=== PATIENT | female | born 1965 | race Caucasian/White ===

== ENCOUNTER 2018-03-15 21:24 | Emergency (ER) | payer MEDICAID ==
[~2018-03-15] VITALS: Ht 134.6 cm; Wt 113.4 kg
[2018-03-15 21:48] VITALS: BP_SYST 117
== END 2018-03-15 22:32 | disposition left against medical advice (07) ==
LOC: SED 21:24
DX: M79.605 Pain in left leg (principal); M79.604 Pain in right leg; Z53.21 Procedure and treatment not carried out due to patient leaving prior to being seen by health care provider

== ENCOUNTER 2018-04-27 14:13 | Emergency (ER) | payer MEDICAID ==
[~2018-04-27] VITALS: Ht 144.8 cm; Wt 97.5 kg
[2018-04-27 14:15] VITALS: BP_SYST 123
[2018-04-27 15:38] VITALS: BP_SYST 119
== END 2018-04-27 15:38 | disposition home or self-care (01) ==
LOC: SED 14:13
DX: S40.862A Insect bite (nonvenomous) of left upper arm, initial encounter (principal); S40.861A Insect bite (nonvenomous) of right upper arm, initial encounter; S90.561A Insect bite (nonvenomous), right ankle, initial encounter; L03.114 Cellulitis of left upper limb; L03.113 Cellulitis of right upper limb; L03.115 Cellulitis of right lower limb; I10 Essential (primary) hypertension; E78.00 Pure hypercholesterolemia, unspecified; W57.XXXA Bitten or stung by nonvenomous insect and other nonvenomous arthropods, initial encounter; Y93.89 Activity, other specified; Y92.89 Other specified places as the place of occurrence of the external cause; Y99.8 Other external cause status
CPT/HCPCS: 99283

== ENCOUNTER 2018-08-01 15:53 | Emergency (ER) | payer MEDICAID ==
[~2018-08-01] VITALS: Ht 144.8 cm; Wt 97.5 kg
[2018-08-01 16:11] VITALS: BP_SYST 137
[2018-08-01] MEDS ORDERED: NACL 0.9% 1,000 ML IV ONE (16:56)
[2018-08-01] MEDS ORDERED: KETOROLAC TROMETHAMINE 30 MG VIAL IVP ONE (17:00)
[2018-08-01] MEDS ORDERED: ONDANSETRON HCL 4 MG/2 ML VIAL IVP ONE (17:00)
[2018-08-01 17:15] LABS: BILIRUBIN,URINE NEGATIVE (NEGATIVE); CLARITY/URINE SL HAZY (CLEAR); COLOR,URINE YELLOW (YELLOW); GLUCOSE,URINE NEGATIVE (NEGATIVE); KETONES,URINE NEGATIVE (NEGATIVE); LEUKOCYTE ESTERASE ,URINE NEGATIVE (NEGATIVE); NITRITE, URINE NEGATIVE (NEGATIVE); PH,URINE 5.5 (5.0-8.0); PROTEIN URINE NEGATIVE (NEGATIVE); UROBILINOGEN,URINE 0.2 (0.2-1.0)
[2018-08-01 17:21] LABS: BLOOD, URINE TRACE (NEGATIVE)
[2018-08-01 17:22] LABS: CALCIUM 8.7 mg/dL (8.4-11.0); CREATININE 0.92 mg/dL (0.55-1.30); POTASSIUM 3.4 mmol/L (3.5-5.1)
[2018-08-01 17:27] LABS: PROTHROMBIN TIME 10.4 SECS (9.5-12.5)
[2018-08-01 17:28] LABS: ALBUMIN 3.7 g/dL (3.4-4.8); TOTAL BILIRUBIN 0.5 mg/dL (0.0-1.0)
[2018-08-01 17:29] LABS: HEMATOCRIT 43.6 % (36-48); HEMOGLOBIN 14.4 g/dL (12.0-16.0); MEAN CORPUSCULAR HEMOGLOBIN 28 pg (27-31); MEAN CORPUSCULAR HGB CONC 33 % (32-36); MEAN CORPUSCULAR VOLUME 86 fL (79.0-98.0); PLATELET COUNT (AUTO) 197 K/uL (130-430); RED BLOOD CELL COUNT(AUTO) 5.07 MIL/uL (4.2-6.2); RED CELL DISTRIBUTION WIDTH 13.4 % (9.0-15.0); WHITE BLOOD COUNT (AUTO) 2.4 K/uL (4.8-10.8)
[2018-08-01] MEDS ORDERED: LOVA20TA2 PO (17:40)
[2018-08-01] MEDS ORDERED: NAPR250T4 PO (17:40)
[2018-08-01] MEDS ORDERED: IBUP-1969 PO (17:40)
[2018-08-01 17:51] LABS: BACTERIA,URINE FEW /HPF (None Seen); MUCUS,URINE 3+ /LPF (None Seen); RBC,URINE 0-3 /HPF (0-3); WBC,URINE 0-3 /HPF (0-3)
[2018-08-01 18:17] LABS: ATYPICAL LYMPHOCYTES % 2 % (0-0); BAND % (MANUAL) 6 % (0-6); BASOPHILS % (MANUAL) 0 % (0-2); EOSINOPHILS % (MANUAL) 2 % (0-7); LYMPHOCYTES % (MANUAL) 37 % (20-46); MONOCYTES % (MANUAL) 8 % (0-11)
[2018-08-01] MEDS ORDERED: PROPOFOL DRIP 100 ML IV ONE (21:00)
[2018-08-01] MEDS ORDERED: MORPHINE 4 MG/ML INJ. SYRINGE IVP ONE (21:00)
[2018-08-01 21:12] VITALS: BP_SYST 128
== END 2018-08-01 21:12 | disposition short-term general hospital (02) ==
LOC: SED 15:53
DX: R10.2 Pelvic and perineal pain (principal); R19.00 Intra-abdominal and pelvic swelling, mass and lump, unspecified site; E78.00 Pure hypercholesterolemia, unspecified; I10 Essential (primary) hypertension; Z79.899 Other long term (current) drug therapy
CPT/HCPCS: 36415; 71045; 74176; 76830; 76857; 80053; 81000; 82150; 82550; 83690; 85007; 85027; 85610; 85730; 93005; 96374; 96375; 99285; J1885; J2270; J2405; J7030

== ENCOUNTER 2018-08-02 22:26 | Emergency (ER) | payer MEDICAID ==
[~2018-08-02] VITALS: Ht 144.8 cm; Wt 97.5 kg
[~2018-08-02 22:26] MED LIST: IBUP-1969 PO; LOVA20TA2 PO; NAPR250T4 PO
[2018-08-02 22:44] VITALS: BP_SYST 136
[2018-08-02] MEDS ORDERED: ONDANSETRON 4 MG ODT TAB PO ONE (23:00)
[2018-08-02] MEDS ORDERED: KETOROLAC TROMETHAMINE 60 MG/2 ML VIAL IM ONE (23:30)
[2018-08-02 23:42] VITALS: BP_SYST 128
== END 2018-08-02 23:42 | disposition home or self-care (01) ==
LOC: SED 22:26
DX: R19.00 Intra-abdominal and pelvic swelling, mass and lump, unspecified site (principal); R11.10 Vomiting, unspecified; E78.00 Pure hypercholesterolemia, unspecified; I10 Essential (primary) hypertension; Z79.899 Other long term (current) drug therapy
CPT/HCPCS: 96372; 99283; J1885; Q0162

== ENCOUNTER 2022-05-09 11:27 | Emergency (ER) | payer MEDICAID ==
[~2022-05-09] VITALS: Ht 144.8 cm; Wt 85.3 kg
[~2022-05-09 11:27] MED LIST changes: +NAPR-1169 PO; -NAPR250T4 PO
--- NOTE | 2022-05-09 11:50 | NUR ---
PT BIB SELF, AWAKE AND ALERT AOX 4. NO SOB OR DISTRESS. PERRLA. DENIES PAIN PT C/O COUGH X2 DAYS.
--- NOTE | 2022-05-09 11:55 | NUR ---
MD DR PALUMBO AT BED SIDE
[2022-05-09 11:56] VITALS: BP_SYST 106
[2022-05-09] MEDS ORDERED: NIRM1TAB PO (13:32)
[2022-05-09 14:05] VITALS: BP_SYST 145
--- NOTE | 2022-05-09 14:06 | NUR ---
Patient given written and verbal discharge instructions and verbalizes understanding. ER MD discussed with patient the results and treatment provided. Patient in stable condition. ID arm band removed. Rx of RITONAVIR given. Patient educated on pain management and to follow up with PMD. Opportunity for questions provided and answered. Medication side effect fact sheet provided.
== END 2022-05-09 14:06 | disposition home or self-care (01) ==
LOC: SED 11:27
DX: U07.1 COVID-19 (principal); J40 Bronchitis, not specified as acute or chronic; I10 Essential (primary) hypertension; E78.00 Pure hypercholesterolemia, unspecified; Z79.899 Other long term (current) drug therapy
CPT/HCPCS: 36415; 71045; 99284

== ENCOUNTER 2022-12-24 17:28 | Emergency (ER) | payer MEDICAID ==
[~2022-12-24] VITALS: Ht 134.6 cm; Wt 91.6 kg
[2022-12-24 17:28] VITALS: BP_SYST 156
[~2022-12-24 17:28] MED LIST changes: +NIRM1TAB PO
[2022-12-24] MEDS ORDERED: methylPREDNISolone SOD SUCC/PF 62.5 MG/ML VIAL IVP ONE (17:45)
[2022-12-24] MEDS ORDERED: ALBUTEROL SULFATE 0.083% 2.5 MG/3 ML VIAL.NEB INH ONE (17:45)
[2022-12-24] MEDS ORDERED: NACL 0.9% 1,000 ML IV ONE (17:45)
[2022-12-24 18:29] LABS: BASOPHILS % (AUTO) 0.7 % (0.0-2.0); EOSINOPHILS # (AUTO) 0.1 K/uL (0.0-0.4); EOSINOPHILS % (AUTO) 1.9 % (0.0-4.0); HEMATOCRIT 35.7 % (36-48); HEMOGLOBIN 11.9 g/dL (12.0-16.0); LYMPHOCYTES # (AUTO) 2.7 K/uL (1.0-5.5); LYMPHOCYTES % (AUTO) 58.7 % (20.5-51.5); MEAN CORPUSCULAR HEMOGLOBIN 28 pg (27-31); MEAN CORPUSCULAR HGB CONC 33 % (32-36); MEAN CORPUSCULAR VOLUME 85 fL (79.0-98.0); MONOCYTES # (AUTO) 0.4 K/uL (0.0-1.0); MONOCYTES % (AUTO) 9.4 % (1.7-9.3); NEUTROPHILS # (AUTO) 1.3 K/uL (1.8-7.7); NEUTROPHILS % (AUTO) 29.3 % (40.0-70.0); PLATELET COUNT (AUTO) 199 K/uL (130-430); RED BLOOD CELL COUNT(AUTO) 4.22 MIL/uL (4.2-6.2); RED CELL DISTRIBUTION WIDTH 14.3 % (9.0-15.0); WHITE BLOOD COUNT (AUTO) 4.6 K/uL (4.8-10.8)
[2022-12-24 18:42] LABS: CALCIUM 8.5 mg/dL (8.4-11.0); CREATININE 0.84 mg/dL (0.55-1.30)
[2022-12-24 18:46] LABS: ALBUMIN 3.4 g/dL (3.4-4.8); TOTAL BILIRUBIN 0.4 mg/dL (0.0-1.0)
[2022-12-24] MEDS ORDERED: FLUT1DIS3 INH (18:55)
[2022-12-24] MEDS ORDERED: MED4 PO (18:55)
[2022-12-24 19:05] VITALS: BP_SYST 156
== END 2022-12-24 19:05 | disposition home or self-care (01) ==
LOC: SED 17:28
DX: J45.909 Unspecified asthma, uncomplicated (principal); R06.02 Shortness of breath; R05.9 Cough, unspecified; I10 Essential (primary) hypertension; E78.5 Hyperlipidemia, unspecified; Z79.899 Other long term (current) drug therapy
CPT/HCPCS: 80053; 85025; 87040; 36415; 71045; 94640; 36600; 82803; 99284; 96361; 96374; 83605; J2930; J7613; J7030

== ENCOUNTER 2023-04-15 14:04 | Emergency (ER) | payer MEDICAID ==
[~2023-04-15] VITALS: Ht 162.6 cm; Wt 72.6 kg
[~2023-04-15 14:04] MED LIST changes: +FLUT1DIS3 INH; +MED4 PO
[2023-04-15 14:41] VITALS: BP_SYST 139; PULSE 92; RESP 20; TEMP 98; O2SAT 99
[2023-04-15] MEDS ORDERED: PSEU30TA36 PO (15:49)
[2023-04-15] MEDS ORDERED: GUAI-723 PO (15:49)
[2023-04-15] MEDS ORDERED: ALBMDI INH (15:49)
== END 2023-04-15 16:00 | disposition home or self-care (01) ==
LOC: SED 14:04
DX: U07.1 COVID-19 (principal); R06.02 Shortness of breath; R09.81 Nasal congestion; I10 Essential (primary) hypertension; Z79.899 Other long term (current) drug therapy
CPT/HCPCS: 99283